=== PATIENT | male | born 1980 | race Caucasian/White ===

== ENCOUNTER 2017-06-03 19:27 | Emergency (ER) | payer OTHER ==
[~2017-06-03] VITALS: Ht 175.3 cm; Wt 122.7 kg
[~2017-06-03 19:27] MED LIST: NOHOMEMEDS; TRAMADOL HCL50 MG PO
[2017-06-03 19:59] LABS: HEMATOCRIT 43.4 % (38.0-50.0); MCH 30.6 PG (29.0-34.0); MCHC 35.3 G/DL (30.0-36.0); MCV 86.8 FL (86-99); MEAN PLAT.VOLUME 9.8 uM^3 (9.0-12.4); PLATELET COUNT 296 K/uL (156-360); RBC DIS.WIDTH-CV 11.9 % (11.8-14.6); RBC DIS.WIDTH-SD 37.5 % (39-53)
[2017-06-03 20:07] LABS: CHLORIDE 105 mEq/L (99-109); POTASSIUM 4.3 mEq/L (3.7-5.4); SODIUM 138 mEq/L (136-147)
[2017-06-03 20:09] LABS: GLUCOSE 88 mg/dL (70-99)
[2017-06-03 20:10] LABS: ANION GAP 7 MEQ/L (2-14)
[2017-06-03 20:12] LABS: GFR ESTIMATE (CALCULATED) > 59 mL/min/ (58.99-99999)
[2017-06-03 20:13] LABS: UREA NITROGEN (BUN) 20 mg/dL (9-23)
[2017-06-03 20:19] LABS: TROP-I INTERPRETATION NEGATIVE; TROPONIN-I < 0.01 ng/mL (0.0-0.30)
[2017-06-03] MEDS ORDERED: NAPROSYN500 MG PO (21:03)
[2017-06-03 21:23] VITALS: BP 151/98
== END 2017-06-03 21:24 | disposition home or self-care (01) ==
LOC: EME 19:27
DX: M94.0 Chondrocostal junction syndrome [Tietze] (principal); R55 Syncope and collapse
CPT/HCPCS: 71020; 80048; 84484; 85027; 93005; 99281; 99284